=== PATIENT | female | born 1995 | race Caucasian/White ===

== ENCOUNTER 2024-06-10 11:58 | Outpatient (CLI) | payer OTHER, MEDICAID, SELFPAY ==
--- NOTE | 2024-06-10 12:15 | CRLHL7_ITS ---
For Patients: As a result of the Cures Act, medical imaging exams and procedure reports are released immediately into your electronic medical record. You may view this report before your referring provider. If you have questions, please contact your health care provider. INDICATION: First trimester scan, establish dates. COMPARISON: None. TECHNIQUE: Real-time weinstein-scale imaging of the pelvis was performed. FINDINGS: Sonographic imaging demonstrates a single living intrauterine gestation. The embryo demonstrates a regular cardiac rate measuring 169 beats per minute. The embryo`s crown-rump length measurement of 2.9 cm corresponds to a gestational age of 9 weeks 5 days with a sonographic due date of 01/08/2025. There is a normal-appearing yolk sac. There are no gross abnormalities noted within the embryo at this early state of development. The gestational sac has a normal appearance. There is no evidence of a perigestational hemorrhage. The amount of fluid within the sac appears appropriate for gestational age. The cervix is closed. The myometrium appears normal. Normal left ovary. Right ovary not visualized. There are no suspicious fluid collections noted in the cul-de-sac. IMPRESSION: Single living intrauterine with sonographic gestational age 9 weeks 5 days and sonographic due date 01/08/2025. Dictated by Naveed Martínez MD @ 06/10/2024 8:23:05 PM (Electronically Signed)
== END 2024-06-10 11:59 | disposition home or self-care (01) ==
PROVIDERS: Visit Provider Advanced Practice Midwife
DX: Z34.91 Encounter for supervision of normal pregnancy, unspecified, first trimester (principal); Z3A.09 9 weeks gestation of pregnancy
CPT/HCPCS: 76801

== ENCOUNTER 2024-06-10 13:09 | Outpatient (CLI) | payer OTHER, MEDICAID, SELFPAY | END 2024-06-10 13:10 | disposition home or self-care (01) | PROVIDERS: Visit Provider Advanced Practice Midwife | DX: Z34.91 Encounter for supervision of normal pregnancy, unspecified, first trimester (principal); Z3A.10 10 weeks gestation of pregnancy | CPT/HCPCS: 83021; 86592; 86703; 86704; 86706; 86762; 86787; 86803; 86850; 86900; 86901; 87086; 87340 ==

== ENCOUNTER 2024-08-23 08:11 | Outpatient (CLI) | payer MEDICAID, SELFPAY ==
--- NOTE | 2024-08-23 08:15 | CRLHL7_ITS ---
For Patients: As a result of the Century Cures Act, medical imaging exams and procedure reports are released immediately into your electronic medical record. You may view this report before your referring provider. If you have questions, please contact your health care provider. OBSTETRICAL ULTRASOUND ??? ANATOMY SURVEY INDICATION: Basic anatomy survey. LMP: 04/01/2024 NEHA by LMP: 01/06/2025 GESTATIONAL AGE: 20 weeks 4 days TECHNIQUE: Realtime weinstein-scale imaging of the fetus was performed transabdominal. PREVIOUS ULTRASOUND: 06/10/2024 FINDINGS: position: Vertex Cervix: Visualized Technique: Transabdominal Length of closed cervix: 3.7 cm Placenta position: Anterior Technique: Transabdominal Placenta tip to internal os: 8.6 cm Umbilical cord: 3-vessel cord Placental insertion: Central Amniotic fluid: 4.7 cm SDP (greater than/equal to 2 to less than 8 cm) ANATOMY SURVEY: Observed Structures Cerebellum: 2.0 cm, 20 weeks 5 days Cisterna magna: 5.4 mm Nuchal fold: 5.0 mm Lateral ventricle: 5.3 mm CSP: Yes Midline falx: Yes Choroid plexus: Yes Spine: Yes Stomach: Yes Abdominal cord insert: Yes Urinary bladder: Yes Kidneys: Yes Diaphragm: Yes Nose/lips: Yes Orbital view: Yes Profile: Yes Upper extremities: Yes Lower extremities: Yes Hands: Yes Feet: Yes 4-chamber heart: Yes LVOT: Yes RVOT: Yes 3VV: Yes 3VTV: Yes BIOMETRY BPD: 5.2 cm, 21 weeks 5 days, 86.9% HC: 18.8 cm, 21 weeks 1 day, 66.9% AC: 15.0 cm, 20 weeks 2 days, 32.5% FL: 3.2 cm, 20 weeks 0 days, 22.6% FL/AC: 21.41% HC/AC ratio: 1.26 heart rate: 145 bpm age by this ultrasound: 20 weeks 5 days NEHA by this ultrasound: 01/05/2025 Estimated weight: 343.3 grams (12 ounces) Percentile by NEHA: 29.4% IMPRESSION: 1) Concordance of sonographic and clinical dates. 2) Normal anatomic survey. 3) Two placental lakes are present measuring 2.3 x 1.7 x 1.6 cm and 3.2 x 1.2 x 1.8 cm. NAVEED BOSS M.D. Diagnostic Radiologist [email or web address] Transcribed: 10:[address]/Dictated by: Naveed Boss MD @ 08/23/2024 10:25:00 AM (Electronically Signed)
== END 2024-08-23 08:12 | disposition home or self-care (01) ==
PROVIDERS: Visit Provider Advanced Practice Midwife
DX: Z34.92 Encounter for supervision of normal pregnancy, unspecified, second trimester (principal); Z3A.20 20 weeks gestation of pregnancy
CPT/HCPCS: 76805

== ENCOUNTER 2024-10-20 11:06 | Outpatient (CLI) | payer MEDICAID, SELFPAY | END 2024-10-20 11:07 | disposition home or self-care (01) | LOC: NFLDREF 11:08 | PROVIDERS: Visit Provider Advanced Practice Midwife | DX: Z34.03 Encounter for supervision of normal first pregnancy, third trimester (principal); Z67.41 Type O blood, Rh negative | CPT/HCPCS: 86592; 86850; J2791 ==

== ENCOUNTER 2024-11-23 10:49 | Outpatient (CLI) | payer MEDICAID, SELFPAY | END 2024-11-23 10:50 | disposition home or self-care (01) | LOC: NFLDREF 11-30 01:45 | PROVIDERS: Visit Provider Midwife | DX: O99.013 Anemia complicating pregnancy, third trimester (principal); D64.9 Anemia, unspecified; Z3A.33 33 weeks gestation of pregnancy | CPT/HCPCS: 82728 ==

== ENCOUNTER 2024-12-07 10:59 | Outpatient (CLI) | payer MEDICAID, SELFPAY | END 2024-12-07 11:00 | disposition home or self-care (01) | LOC: NFLDREF 12-14 15:45 | PROVIDERS: Visit Provider Advanced Practice Midwife | DX: Z34.03 Encounter for supervision of normal first pregnancy, third trimester (principal) | CPT/HCPCS: 87081; 87653 ==

== ENCOUNTER 2025-01-13 10:25 | Outpatient (CLI) | payer MEDICAID, SELFPAY ==
--- NOTE | 2025-01-13 10:45 | CRLHL7_ITS ---
For Patients: As a result of the Cures Act, medical imaging exams and procedure reports are released immediately into your electronic medical record. You may view this report before your referring provider. If you have questions, please contact your health care provider. OB ULTRASOUND BIOPHYSICAL PROFILE LMP: 04/01/2024. NEHA by LMP: 01/06/2025. GA: 41 w, 1 d. Single. Comparison: 08/23/2024. INDICATION: Post term. TECHNIQUE: Real time weinstein scale imaging of the fetus was performed. Transabdominal. CERVIX: Not visualized. POSITIONING: Vertex. AMNIOTIC FLUID: 7.0 cm. SDP (N: greater than 2 x 1 cm) BIOPHYSICAL PROFILE: Total score: 2. Gross body movements: 2. tone: 2. Respiratory activity: 2. Amniotic fluid: 2. (SDP N: greater than 2 x 1 cm) Total 02/24. PLACENTA: Technique: Transabdominal. PLACENTA POSITION: Anterior. DOPPLER: heart rate: 139 bpm. IMPRESSION: Normal biophysical profile 02/24. Naveed Martínez M.D. Diagnostic Radiologist [email or web address] CARON/sneha JR/Dictated by: Naveed Martínez MD @ 01/13/2025 11:34:00 AM (Electronically Signed)
--- OUTSIDE RECORDS SUMMARY | 2025-01-13 11:17 | XMS_ITS | Clinical Summary ---
Author Organization [facility] Address [address], [place] [address] Care Team Providers Care Manager Physical Name Role Phone Magdalena Tavares PA-C Primary Care Provider [phone] Source Comments You are receiving this document as you are listed as the primary care provider,follow-up provider, or the patient has been referred to you for consultation.This is in compliance with the Medicare and[facility] EHR Incentive Program,which states Providers who transition their patient to another setting of careor provider of care or refers their patient to another provider of care shouldprovide summary care record for each transition of care or referral. ScaleMP Allergies Active Allergy Reactions Criticality Noted Date Comments Penicillins Rash Medium 04/14/2019 Medications No known medications Active Problems No known active problems Immunizations Immunization Administration Dates Next Due Tdap 11/12/2018 Family History Medical History Relation Name Comments No Known Problems Father No Known Problems Mother Cancer, Skin Paternal Grandfather Dementia Paternal Grandmother Cancer, Breast Negative Family History Cancer, Colon Negative Family History Coronary Artery Disease Negative Family History Relation Name Status Comments Father Alive Mother Alive Brother 1 Alive Brother 2 Alive Maternal Grandfather Alive Maternal Grandmother (Age 87) Co mplications due to COVID and kidney-related issues Paternal Grandfather Alive Paternal Grandmother Sister 1 Alive Sister 2 Alive Social History Tobacco Use Types Packs/Day Years Used Date Smoking Tobacco: Never Smokeless Tobacco: Never Alcohol Use Standard Drinks/Week Comments Not Currently 0 (1 standard drink = 0.6 oz pur e alcohol) AUDIT-C Answer Date Recorded Q1: How often do you have a drink containing alc ohol? Never 07/30/2020 Average Number of Drinks Not on file 021 Frequency of Binge Drinking Not on file 07/20 PHQ-2 Answer Date Recorded PHQ-2 Score 0 09/17/2021 Comments No Sex and Gender Information Value Date Recorded Sex Assigned at Not on file Legal Sex Female 3:28 PM CDT Gender Identity Not on file Sexual Orientation Not on file Occupation Industry Job Start Date Job End Date Teacher Not on file Not on file Not on file Last Filed Vital Signs Vital Sign Reading Time Taken Comments Blood Pressure 118/69 10/10/2021 2:42 PM CDT Pulse 80 10/10/2021 2:42 PM CDT Temperature 36.6 C (97.9 F) 04/14/2019 3:53 PM CDT Respiratory Rate - - Oxygen Saturation - - Inhaled Oxygen Concentration - - Weight 65.2 kg (143 lb 11.2 oz) 10/10/2021 2:42 PM CDT Height 168.9 cm (5' 6.5) 09/17/2021 3:37 PM CLOTH PRINTER Body Mass Index 22.85 09/17/2021 3:37 PM CLOTH PRINTER Plan of Treatment Health Maintenance Due Date Last Done Comments Hep C Screening (Preventive Services) 1997 HIV Screening (Preventive Services) 2013 HepB Vaccine (1) 01/21/2016 Adult Preventive Visit 09/18/2023 2, 07/30/2020 COVID-19 Vaccine ( - 2023-2 5 season) 2024 Cervical Cancer Screening 09/17/20242021, 06/23/2018 (Completed) Influenza Vaccine (Season Ended) 2025 DTaP/Tdap/Td Vaccine (2 - Tdap) 11/12/2028 11/12/2018 Zoster/Shingles Vaccine (1 o f 2) 2047 HPV Vaccine Aged Out No longer eligi ble based on patient's age to complete this topic HepA Vaccine Aged Out No longer eligi ble based on patient's age to complete this topic Hib Vaccine Aged Out No longer eligi ble based on patient's age to complete this topic IPV (Polio) Vaccine Aged Out No longe r eligible based on patient's age to complete this topic MCV4 Vaccine Aged Out No longer eligi ble based on patient's age to complete this topic Meningococcal B Vaccine Aged Out No l onger eligible based on patient's age to complete this topic Pneumococcal Vaccine Aged Out No long er eligible based on patient's age to complete this topic Procedures Procedure Name Priority Date/Time Associated Diagnosis Comments CYTOLOGY (PAP) Routine 09/17/2021 4:18 PM CLOTH PRINTER Screening for malignant neoplasm of cervix from Last 3 Months or Most Recently Relevant to Health Maintenance Results * PAP Test (09/17/2021 4:18 PM CLOTH PRINTER) Case Report Pap Case: [id number] Authorizing Provider: Magdalena Tavares PA-C Collected: 09/17/2021 1618 Ordering Location: [facility] Received: 09/17/2021 1634 First Screen: Isabelle Shahid CT (ASCP) Specimen: Pap Test, Routine, Cervix/Endocervix 09/25/2021 11:23 AM CLOTH PRINTER [facility] Pap Specimen Adequacy Satisfactory for evaluation, endocervical/cao sformation zone component present. 09/25/2021 11:23 AM CLOTH PRINTER [facility] Pap Interpretation (NILM) Negative for intraepithelial lesion or malignancy. 09/25/2021 11:23 AM CLOTH PRINTER [facility] at 1123 CLOTH PRINTER Pap Disclaimer The Pap test is a screening test designed to aid in the detection of cervical cancer and its precursor lesions. It is not a diagnostic procedure and should not be used as the sole means of detecting cervical cancer. Both false-positive and false-negative results may occur. 09/25/2021 11:23 AM CLOTH PRINTER [facility] Gross Description The specimen is received in SurePath fixative and properly labeled. 1 Pap-stained SurePath slide is prepared. 09/25/2021 11:23 AM CLOTH PRINTER [facility] Embedded Images 11:23 AM CLOTH PRINTER [facility] Other Specimen Type ENTIRE ENDOCERVIX / Unknown 09/17/2021 4:18 PM CLOTH PRINTER 09/17/2021 4:34 PM CLOTH PRINTER Comment:LMP: 08/31/21 Magdalena Tavares PA-C LAB PATHOLOGY Final Resul t [facility] [address] [place] [address], [facility] from Last 3 Months or Most Recently Relevant to Health Maintenance Insurance BCBS OUT OF STATE Care Teams Manager Physical Relationship Specialty Start Date End Date Magdalena Tavares PA-C [address] [place] [address] PCP - General Physician Online Community Manager 04/14/19
--- OUTSIDE RECORDS SUMMARY | 2025-01-13 11:17 | XMS_ITS | Clinical Summary ---
Author Organization [facility] Address [address] [place] [id number] Care Team Providers Care Physician Executive Name Role Phone No Ref-Primary, Physician Primary Care Provider Mynor Gomez MD Unavailable [phone] Allergies Active Allergy Reactions Criticality Noted Date Comments Penicillins Rash Medium 04/14/2019 Medications No known medications Family History Medical History Relation Comments Cardiomyopathy No family hx of Coronary Artery Disease Early Onset No family hx of Social History Tobacco Use Types Packs/Day Years Used Date Smoking Tobacco: Never Passive Smoke Exposure: Never Smokeless Tobacco: Never Tobacco Cessation:Counseling Given: No Alcohol Use Standard Drinks/Week Comments Not Currently 0 (1 standard drink = 0.6 oz pur e alcohol) PHQ-2 Answer Date Recorded PHQ-2 Score 0 06/18/2023 Adolescent Education Answer Date Record ed Getting School Help Needed Not on file 04/16 Comments Unknown Sex and Gender Information Value Date Recorded Sex Assigned at Not on file Legal Sex Female 10:48 AM CDT Gender Identity Not on file Sexual Orientation Not on file 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 Not on file N ot on file Last Filed Vital Signs Vital Sign Reading Time Taken Comments Blood Pressure 108/76 06/18/2023 9:35 AM RECONSTRUCTIVE SURGEON Pulse 93 06/18/2023 9:35 AM RECONSTRUCTIVE SURGEON Temperature - - Respiratory Rate - - Oxygen Saturation 95% 06/18/2023 9:35 AM RECONSTRUCTIVE SURGEON Inhaled Oxygen Concentration - - Weight 66.2 kg (146 lb) 06/18/2023 9:35 AM RECONSTRUCTIVE SURGEON Height 167.6 cm (5' 6) 06/18/2023 9:35 AM RECONSTRUCTIVE SURGEON Body Mass Index 23.57 06/18/2023 9:35 AM RECONSTRUCTIVE SURGEON Plan of Treatment Health Maintenance Due Date Last Done Comments ADVANCE CARE PLANNING 1997 ANNUAL REVIEW OF HM ORDERS 1997 HEPATITIS B VACCINE (1 of 3 - 19+ 3-dose series) 01/21/2016 PAP 2018 YEARLY PREVENTIVE VISIT 09/17/2022 09/18/19, 07/30/2020 COVID-19 VACCINE (1 - 2023-2 5 season) 2024 PHQ-2 (once per calendar year) 2024 06/18/2023 INFLUENZA VACCINE (Season Ended) 2025 DTAP/TDAP/TD VACCINE (2 - Td or Tdap) 11/12/2028 11/12/2018 ZOSTER VACCINE (1 of 2) 2047 HEPATITIS C SCREENING Completed 06/10/2024 HIV SCREENING Completed 06/10/2024 HPV VACCINE Aged Out No longer eligi ble based on patient's age to complete this topic MENINGITIS VACCINE Aged Out No longer eligible based on patient's age to complete this topic PNEUMOCOCCAL VACCINE: PEDIATRICS (0 to 5 YEARS) AND AT-RISK PATIENTS (6 to 49 YEARS) Aged Out No longer eligible b ased on patient's age to complete this topic Insurance ([place]) [place] [id number] [facility] INDIVIDUAL FAMILY PLANS WITH [facility] INDIVIDUAL FAMILY [facility]ANS WITH [facility] Care Teams Physician Executive Relationship Specialty Start Date End Date No Ref-Primary, Physician PCP - General 04/16/23 Mynor Gomez MD [address] [place] [address] [id number] Cardiovascular Disease 05/18/23
--- OUTSIDE RECORDS SUMMARY | 2025-01-14 00:29 | XMS_ITS | Clinical Summary ---
Author Organization [facility] Address [address], [place] [address] Care Team Providers Care Gripper Machine Operator Name Role Phone Magdalena Tavares PA-C Primary Care Provider [phone] Source Comments You are receiving this document as you are listed as the primary care provider,follow-up provider, or the patient has been referred to you for consultation.This is in compliance with the Medicare and[facility] EHR Incentive Program,which states Providers who transition their patient to another setting of careor provider of care or refers their patient to another provider of care shouldprovide summary care record for each transition of care or referral. [employer] Allergies Active Allergy Reactions Criticality Noted Date [...] 168.9 cm (5' 6.5) 09/17/2021 3:37 PM CHRONIC CARE NURSE Body Mass Index 22.85 09/17/2021 3:37 PM CHRONIC CARE NURSE Plan of Treatment Health Maintenance Due Date [...] Comments CYTOLOGY (PAP) Routine 09/17/2021 4:18 PM CHRONIC CARE NURSE Screening for malignant neoplasm of cervix from Last 3 Months or Most Recently Relevant to Health Maintenance Results * PAP Test (09/17/2021 4:18 PM CHRONIC CARE NURSE) Case Report Pap Case: [id number] Authorizing Provider: Magdalena Tavares PA-C Collected: 09/17/2021 1618 Ordering Location: [facility] Received: 09/17/2021 1634 First Screen: Isabelle Shahid CT (ASCP) Specimen: Pap Test, Routine, Cervix/Endocervix 09/25/2021 11:23 AM CHRONIC CARE NURSE [facility] Pap Specimen Adequacy Satisfactory for evaluation, endocervical/cao sformation zone component present. 09/25/2021 11:23 AM CHRONIC CARE NURSE [facility] Pap Interpretation (NILM) Negative for intraepithelial lesion or malignancy. 09/25/2021 11:23 AM CHRONIC CARE NURSE [facility] at 1123 CHRONIC CARE NURSE Pap Disclaimer The Pap test is a screening test designed to aid in the detection of cervical cancer and its precursor lesions. It is not a diagnostic procedure and should not be used as the sole means of detecting cervical cancer. Both false-positive and false-negative results may occur. 09/25/2021 11:23 AM CHRONIC CARE NURSE [facility] Gross Description The specimen is received in SurePath fixative and properly labeled. 1 Pap-stained SurePath slide is prepared. 09/25/2021 11:23 AM CHRONIC CARE NURSE [facility] Embedded Images 11:23 AM CHRONIC CARE NURSE [facility] Other Specimen Type ENTIRE ENDOCERVIX / Unknown 09/17/2021 4:18 PM CHRONIC CARE NURSE 09/17/2021 4:34 PM CHRONIC CARE NURSE Comment:LMP: 08/31/21 Magdalena Tavares PA-C LAB PATHOLOGY Final Resul t [facility] [address] [place] [address], [facility] from Last 3 Months or Most Recently Relevant to Health Maintenance Insurance BCBS OUT OF STATE Care Teams Gripper Machine Operator Relationship Specialty Start Date End Date Magdalena Tavares PA-C [address] [place] [address] PCP - General Physician Jewel Hole Rough Opener 04/14/19
--- OUTSIDE RECORDS SUMMARY | 2025-01-14 00:29 | XMS_ITS | Clinical Summary ---
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 Not on file N ot on file Last Filed Vital Signs Vital Sign Reading Time Taken Comments Blood Pressure 108/76 06/18/2023 9:35 AM PRIMER INSERTING MACHINE ADJUSTER Pulse 93 06/18/2023 9:35 AM PRIMER INSERTING MACHINE ADJUSTER Temperature - - Respiratory Rate - - Oxygen Saturation 95% 06/18/2023 9:35 AM PRIMER INSERTING MACHINE ADJUSTER Inhaled Oxygen Concentration - - Weight 66.2 kg (146 lb) 06/18/2023 9:35 AM PRIMER INSERTING MACHINE ADJUSTER Height 167.6 cm (5' 6) 06/18/2023 9:35 AM PRIMER INSERTING MACHINE ADJUSTER Body Mass Index 23.57 06/18/2023 9:35 AM PRIMER INSERTING MACHINE ADJUSTER Plan of Treatment Health Maintenance Due Date [...] patient's age to complete this topic Insurance ([place]) [place] [id number] [facility] INDIVIDUAL FAMILY PLANS WITH [facility] INDIVIDUAL FAMILY PLANS WITH [facility] Care Teams Manager Student Services Relationship Specialty Start Date End Date No Ref-Primary, Physician PCP - General 04/16/23 Mynor Gomez MD [address] [place] [address] [phone] Cardiovascular Disease 05/18/23
== END 2025-01-13 10:26 | disposition home or self-care (01) ==
LOC: US 10:26
PROVIDERS: Visit Provider Advanced Practice Midwife
DX: O48.0 Post-term pregnancy (principal); Z3A.41 41 weeks gestation of pregnancy
CPT/HCPCS: 76819

== ENCOUNTER 2025-01-13 14:14 | Outpatient (CLI) | payer MEDICAID, SELFPAY | END 2025-01-13 14:15 | disposition home or self-care (01) | LOC: NFLDREF 01-17 12:52 | PROVIDERS: Visit Provider Advanced Practice Midwife | DX: O48.0 Post-term pregnancy (principal); Z3A.41 41 weeks gestation of pregnancy | CPT/HCPCS: 76819; 87081; 87653 ==

== ENCOUNTER 2025-01-19 16:43 | Inpatient (IN) | payer MEDICAID, SELFPAY ==
[2025-01-19 16:55] VITALS: PULSE 96; O2SAT 98
[2025-01-19 16:56] VITALS: BP 111/75; PULSE 104
--- NOTE | 2025-01-19 17:25 | W.PM.LDBA ---
Subjective History of Present Illness Date Seen: 01/19/25 Narrative: Patient is being admitted to Labor and Delivery for IOL for post dates. She is a 29 year old at weeks gestation. Her full history and physical was dictated by Piper Boggs CNM 12/21 and 12/28/2024. Please see this for details. She is supported in her labor by her Nick. She has been sarika for most of the day, and while stronger than previous, she does not feel pain as of yet. No LOF or vaginal bleeding. Specific Issues/Plans : Nick H&P 12/21/24 by Angelica Boggs CNM. Heart and Lung sounds completed 12/28 Pt is a teacher, [employer] # PCN allergy Needs GBS sensitivity if positive Discussed allergy testing, she declines at this time but may considering testing after GBS is resulted Hives after surgery age 7 #Rh negative is Rh + by [facility] testing recommend Rhogam at 28 weeks-given #Anemia in 10.9 at 28w-started on PO iron 10.6 at 34w-to make sure she is taking 65 mg elemental iron with Vit C, recheck in 2 weeks-order placed COVID: Flu: TDAP: 11/07/24 32wk Mental Health: Pap due PP (09/17/21, NIL) Patient is going to talk to her mom to get her childhood immunization records, grew up in [place]. OB - Problem Based A/P Additional Plan (1) Post-dates : Status: Acute (2) Anemia affecting : Status: Acute (3) Supervision of normal first : Status: Acute Plan ASSESSMENT:?? 29 at 41 6/7 weeks gestation?? complicated by:??anemia, post term Labor type: Induced, Early labor?? Category 1 FHR pattern.??? Labor complicated by: none GBS negative ?? PLAN:?? 1. Routine intrapartum cares as ordered. Since we are monitoring baby, she is already sarika, but is not changing her cervix, options for ripening reviewed. I am hesitant to do anything that cannot be removed if we overstimulate the uterus. Cervidil or mechanical dilation would be the best options. Janice and Nick prefer to wait a few hours and see if her body picks up strength or frequency first. If not, they are choosing cervidil. I feel this is reasonable at this time. Side lying releases and upright positioning recommended. 2. Monitoring per policy, continuous 3. Planning unmedicated . Desires water . Consent signed. Hep C negative. Candidate for analgesia of choice.??? 4. Patient encouraged to reposition and ambulate to promote physiologic labor and .?? 5. Anticipate ? OB Result Labs Blood Type: 0 (-) negative Rubella: immune RPR/VDLR: nonreactive GBS Status: negative HBsAG: negative OB Exam Physical Exam Vital signs: Pulse BP Pulse Ox 104 H 111/75 98 01/19/25 16:56 01/19/25 16:56 01/19/25 16:55 Narrative: Vitals Reviewed Constitutional:? Alert and oriented x3 HEENT:? Normocephalic, atraumatic Neck:? Supple Lungs:? Clear to auscultation bilaterally Heart:? Regular rate and rhythm, no murmur, rub or gallop Abdomen:? Soft, nontender, and gravid. Vertex by Siddharth's, confirmed with cervical exam. Extremities:? No edema or erythema Cervix: 1-2 cm/20%/-4 station/Vertex verified by bedside US. And baby is LOP. EFW 8.5# NST: 125 bpm/moderate variability/accelerations present/decelerations absent/contractions q 3-5 min, palpating mild
[2025-01-19 20:45] VITALS: TEMP 36.6
[2025-01-19 21:47] VITALS: BP 112/79; PULSE 93
[2025-01-19 22:45] VITALS: TEMP 36.6
[2025-01-20] VITALS (17 sets, daily range): BP systolic 101–184; BP diastolic 54–133; PULSE 75–180; RESP 16; TEMP 36.4–36.8; O2SAT 96–97
[2025-01-20] MEDS: DINOPROSTONE 10 MG VAGINAL INSERT VAGINAL (00:35)
--- NOTE | 2025-01-20 09:56 | PM.OBPNL ---
Subjective Date Seen: 01/20/25 Narrative: Janice is a 30 yo at 42 0/7 weeks gestation that presented for Post-date IOL yesterday evening. At time of arrival, she was sarika regularly but minimally painful. Her IOL was started with vaginal cervadil. This morning around 730, she noted it had fallen out. She strongly desires to try to let her body go into labor naturally. She denies any LOF but has had some bloody show. No bright red bleeding.She is supported in labor by her , Nick. Specific Issues/Plans [id number]: EvanH&P 12/21/24 by Angelica Boggs CNM. Heart and Lung sounds completed 12/28 Pt is a teacher, [employer] # PCN allergy Needs GBS sensitivity if positive Discussed allergy testing, she declines at this time but may considering testing after GBS is resulted Hives after surgery age 7 #Rh negative is Rh + by [place] testing recommend Rhogam at 28 weeks-given #Anemia in 10.9 at 28w-started on PO iron 10.6 at 34w-to make sure she is taking 65 mg elemental iron with Vit C, recheck in 2 weeks-order placed Objective Exam: Objective: Constitutional: Alert and oriented x3, mild distress, coping well Vital signs stable, see nurse documentation Abdomen: gravid, contractions palpate moderate with contractions and soft between Cervix: 2 cm/70%/-2 station/vertex NST: 130 bpm/moderate variability/15x15 accelerations/no decelerations/contractions Vital Signs: Last Vital Signs Temp 98.2 F 01/20/25 07:23 Pulse 95 01/20/25 07:23 Resp 16 01/20/25 07:23 BP 104/70 01/20/25 07:23 Pulse Ox 96 01/20/25 08:16 Plan Plan: ASSESSMENT:?? 29 at 42 0/7 weeks gestation?? complicated by:??anemia, post term Labor type: Induced, Early labor?? Category 1 FHR pattern.??? Labor complicated by: none GBS negative ?? PLAN:?? 1. Routine intrapartum cares as ordered. Discussed options including replacing Cervidil, expectant management, AROM, vs Pitocin. Since the cervidil came out she has had some more regular contractions and desires to give it some time. Will discuss options again this afternoon. Encouraged her to do labor warm up and be moving to help labor progress. 2. Monitoring per policy, continuous due to post-dates. 3. Planning unmedicated . Desires water . Consent signed. Hep C negative. Candidate for analgesia of choice.??? 4. Patient encouraged to reposition and ambulate to promote physiologic labor and .?? 5. Anticipate
--- NOTE | 2025-01-20 15:30 | P.OBPN_ITS ---
Subjective Time Seen by Provider: 15:15 Date Seen: 01/20/25 Narrative: Janice is a 30 yo at 42 0/7 weeks gestation that presented for Post-date IOL yesterday evening. She has received 1 dose of Cervidil this morning that fallout around 730, after only 7 hours post placement. She has then progressed on her own. She is motivated to change positions and try to continue labor on it's own. She denies any LOF but has had some bloody show. No bright red bleeding. She is supported in labor by her , Nick. Her cross country/track and field coach is planning on coming when she becomes more active. Objective Exam: Objective: Constitutional: Alert and oriented x3, mild/moderate distress, coping well Vital signs stable, see nurse documentation Abdomen: gravid, contractions palpate moderate/strong with contractions and soft between Cervix: 4 cm/80%/-2 station/vertex NST: 130 bpm/moderate variability/15x15 accelerations/no decelerations/contractions every 2-3 minutes Vital Signs: Last Vital Signs Temp 97.6 F 01/20/25 19:04 Pulse 113 H 01/20/25 19:04 Resp 16 01/20/25 19:04 BP 112/72 01/20/25 19:04 Pulse Ox 97 01/20/25 12:25 Plan Plan: ASSESSMENT:?? 29 at 42 0/7 weeks gestation?? complicated by:??anemia, post term, rh negative Labor type: Induced, Early labor?? Category 1 FHR pattern.??? Labor complicated by: none GBS negative ?? PLAN:?? 1. Routine intrapartum cares as ordered. Reviewed options including replacing Cervidil, expectant management, AROM, vs Pitocin. She has made change since then without additional induction agents, will continue with expectant management at this time. Aware that we have options if labor slows down or with any changes. 2. Monitoring per policy, continuous due to post-dates. 3. Planning unmedicated . Desires water . Consent signed. Hep C negative. Candidate for analgesia of choice.??? 4. Patient encouraged to reposition and ambulate to promote physiologic labor and .?? 5. Anticipate
[2025-01-21] VITALS (70 sets, daily range): BP systolic 78–113; BP diastolic 51–74; PULSE 95–160; RESP 16–20; TEMP 35.8–37.1; O2SAT 96–100
--- NOTE | 2025-01-21 02:45 | P.OBPN_ITS ---
Subjective Time Seen by Provider: 02:45 Date Seen: 01/21/25 Narrative: Janice is a 30 yo at 42 1/7 weeks gestation that presented for Post-date IOL 01/19. She has received 1 dose of Cervidil then progressed on her own. She has been motivated to change positions and try to continue labor on it's own. She denies any LOF but has had some bloody show. No bright red bleeding. She is supported in labor by her , Nick. Her spout worker is present and supportive. Patient has been active with position changes. She entered the tub about midnight and had intermittent pushing urge with contractions starting at 0040. At 0233, I recommended SVE after minimal change in demeanor and her reported feeling of pressure. Discussed I would recommend AROM. Vital Signs: Last Vital Signs Temp 97.6 F 01/20/25 19:04 Pulse 113 H 01/20/25 19:04 Resp 16 01/20/25 19:04 BP 112/72 01/20/25 19:04 Pulse Ox 97 01/20/25 12:25 Objective Exam: Objective: Constitutional: Alert and oriented x3, moderate/severe distress, coping well Vital signs stable, see nurse documentation Abdomen: gravid, contractions palpate strong with contractions and soft between Cervix: 8 cm/80%/0 station/vertex; AROM of clear fluid NST: 125 bpm/moderate variability/15x15 accelerations/no decelerations/contractions every 2-6 minutes Vital Signs: Last Vital Signs Temp 96.5 F L 01/21/25 05:35 Pulse 160 H 01/21/25 07:26 Resp 20 01/21/25 00:35 BP 91/54 L 01/21/25 07:26 Pulse Ox 100 01/21/25 05:30 Plan Plan: ASSESSMENT:?? 27 at 42 1/7 weeks gestation?? complicated by:??anemia, post term, rh negative Labor type: Induced, Early labor?? Category 1 FHR pattern.??? Labor complicated by: none GBS negative ?? PLAN:?? 1. Routine intrapartum cares as ordered. Discussed and encouraged SVE and AROM, patient was initially unsure but then agreed after discussion and given time to discuss with partner. [employer] agreed it would help with labor progression. 2. Monitoring per policy, continuous due to post-dates. 3. Planning unmedicated . Desires water . Consent signed. Hep C negative. Candidate for analgesia of choice, if desired.??? 4. Patient encouraged to reposition and ambulate to promote physiologic labor and .?? 5. Anticipate
[2025-01-21] MEDS: LIDOCAINE 1 % PF 30 ML INJECTION (07:28)
[2025-01-21] MEDS: lidocaine HCL 2 % JELLY (TOP) STERILE 6 ML TOPICAL (07:29)
[2025-01-21] MEDS: LACTATED RINGERS 1000 ML 1,000 ML 1200 ML IV ×2 (07:35→10:02)
[2025-01-21] MEDS: miSOPROStoL 800 MCG/4 TABLET PR (07:35)
--- NOTE | 2025-01-21 07:43 | W.PM.OBVAGDE ---
OB Procedure Vag Delivery Mother Details Mother Details: The patient is a 30 year-old, 1, now Para 1, admitted on 01/19/25 at 42.1 gestation. : 1 Para: 1 Weeks Gestation: 42.1 Admission Date: 01/19/25 Additional Details Amniotic Membrane Status: AROM Amniotic Membrane Rupture Date: 01/21/25 Amniotic Membrane Rupture Time: 02:33 Amniotic Membrane Fluid Description: Clear Analgesia/Anesthesia Type: None Waterbirth: No Pitcoin: Yes ([facility] only) Intrapartal Events: Labor Induction Induction Method: Cervidil Labor Onset: 18:15 Complete: 04:45 Pushin:45 Heart: heart tones during second stage were category II and difficult to monitor due to maternal positioning. Continual monitoring by RN and CNM during pushing with continued adjustment of US monitor. Reassuring FHR status throughout. Delivery Details Delivery Date: 01/21/25 Delivery Time: 06:37 Route of delivery: Gender: Male Viability: Alive; Heart Rate Present Position at Delivery: OA Delivery Details: Patient was admitted for induction of labor for post dates. She received 1 dose of cervidil before progressing spontaneously on her own. Patient attempted to labor in the tub but had a hard time determining contraction from pressure and pushing. She begin pushing occasionally with urge at peak of contractions at 0040. An SVE was recommended and encouraged AROM at 8 cm. She was AROM'd for clear fluid at 0233. She got out of the tub and was more effectively able to push in squatting position. Patient was assumed complete with pushing effectively at 0445. of a viable male at 0656, kneeling on the mat next to the bed. Vertex delivered OA. No nuchal cord or shoulder. Body delivered easily and without incident. Infant passed to mothers abdomen with a vigorous cry. Cord was clamped and cut at > 5 minutes. APGARS were 8 at one minute and 9 at five minutes respectively. Mouth was bulb suctioned. Intact placenta with a 3 vessel cord delivered spontaneously at 0656. Fundus firm. EBL 500 cc on the floor mat. JJ Perez assumed care after delivery of placenta for repair. QBL 178 cc. Total blood loss with EBL 678 cc. 2nd degree perineal laceration repair with 3-0 vicryl in usual manner. Right labial laceration repaired, smaller left labial not bleeding and not repaired. Vaginal hematoma on left vaginal wall stable not increasing in size, vaginal packing placed after repair, smaller hematoma to right side palpated. Mother and baby stable; mother plans to breastfeed. weight pending. 1 Minute Interval Total Score: 8 5 Minute Interval Total Score: 9 Additional Details Shoulder Dystocia: No Placenta Delivery Time: 06:56 Placental Delivery Description: Spontaneous Delivery repair: Vicryl Procedure Done: Global Laceration: Perineal - 2nd Degree Blood Loss Measurement Type: QBL (+ EBL on the floor mat) Bakri Used: No Sponge/Need Count Correct: Yes Cord Vessel Description: 3 Vessels Event Summary Status: Mother and were stable after delivery. Disposition: floor
[2025-01-21] MEDS: IBUPROFEN 600 MG TABLET PO ×3 (08:16→20:52)
[2025-01-21 10:11] LABS: Hematocrit 32.9 % (33.0-51.0); Hemoglobin* 11.6 gm/dL (12.0-16.0); Immature Granulocytes Pct Auto 0.2 %; Mean Corpuscular HGB Conc 35 gm/dL (32-36); Mean Corpuscular Hemoglobin 31 pg (26-34); Mean Corpuscular Volume 88 fL (80-100); RDW Coefficient of Variation % 14.3 % (11.5-15.5); Red Blood Count 3.74 m/uL (4.00-5.20); White Blood Count* 24.02 K/uL (4.50-11.00)
[2025-01-21 10:17] LABS: Immature Granulocytes Abs Auto 0.00 K/uL (0.00-0.30); Lymphocytes Absolute Auto 0.80 K/uL (0.90-2.90)
[2025-01-21 10:18] LABS: Slide Review Reflex No
[2025-01-21] MEDS: ACETAMINOPHEN 500 MG TABLET 1000 MG PO ×2 (12:43→19:23)
--- NOTE | 2025-01-21 14:05 | PM.EN ---
Chart Event Note Time Seen by Provider: 14:00 Date Seen: 01/21/25 Chart Event Note: Called to patient's bedside for complaints of increasing pain. Just prior to my arrival she got up to the bathroom and the vaginal packing came out. She then passed a large clot and voided. On my arrival to the room she reports minimal pain, a visual exam of the hematoma area appears to be be slightly smaller than immediately after delivery. An internal palpation of the area was not done by patient request. Fundus is firm at umbilicus. Denies need for additional pain medication at this time. An ice pack and fresh pad was placed and she plans to try nap as she reports feeling exhausted.
[2025-01-22] VITALS (13 sets, daily range): BP systolic 92–106; BP diastolic 58–70; PULSE 90–104; RESP 16–20; TEMP 36.2–36.9; O2SAT 95–97
[2025-01-22] MEDS: ACETAMINOPHEN 500 MG TABLET 1000 MG PO ×4 (01:28→20:18)
[2025-01-22] MEDS: IBUPROFEN 600 MG TABLET PO ×4 (03:47→23:40)
[2025-01-22 06:25] LABS: Hemoglobin* 7.0 gm/dL (12.0-16.0)
--- NOTE | 2025-01-22 07:21 | P.OBPN_ITS ---
OB - PN:Subj Subjective Date Seen: 01/22/25 Narrative: Janice is a 30 y.o. who was admitted to L & D for induction of labor for postdates.? She had a NVD with vaginal hematoma.?This morning her Hgb is 7.0, down from 11.6. She is not feeling symptomatic at this time. Hematoma appears to be the same size from yesterday possibly slightly smaller. The patient feels well.? The pain is well controlled with current medications.? She has no new complaints.? She is breast feeding and reports things are going well.? the patient has done well.? Vitals have been stable.? She has remained afebrile.? Has a good appetite, is tolerating a general diet.? She is voiding without difficulty.? She is passing gas and has not had a bowel movement.? She is ambulating and denies any dizziness.? Has Small amount of rubra lochia.? OB - PN: Obj Exam Physical Exam: Vital signs: Temp Pulse Resp BP Pulse Ox O2 Del Method 98.1 F 99 16 94/63 96 Room Air 01/22/25 03:59 01/22/25 03:59 01/22/25 03:59 01/22/25 03:59 01/22/25 03:59 01/22/25 03:59 Narrative: GENERAL APPEARANCE:? normal affect, alert, no distress? MOOD:? appropriate? HEENT: normocephalic, neck supple, full ROM? CHEST:? Symmetrical chest wall movement.? Normal respiratory effort.? Clear to auscultation ? HEART:? regular rate and rhythm? ABDOMEN:? soft, non-tender. Uterine fundus is firm, 1 above Umbilicus and to the right. She reports needing to void.? Bowel sounds present.? PERINEUM:? mild edema of the perineum, left labial hematoma appears unchanged, skin is not taut there is a 2nd degree and right labial laceration that is healing well.? EXTREMITIES:? normal and trace edema? OB - PN: Obj Data Labs Labs: Laboratory Results - last 24 hr 01/21/25 01/22/25 07:38 06:02 WBC 24.02 H RBC 3.74 L Hgb 11.6 L 7.0 L* Hct 32.9 L MCV 88 MCH 31 MCHC 35 RDW Coeff of Dominik 14.3 Plt Count 218 Neut % (Auto) 91.0 H Lymph % (Auto) 3.4 L [place] % (Auto) 5.4 Eos % (Auto) 0.0 Baso % (Auto) 0.0 Neut # (Auto) 21.90 H Lymph # (Auto) 0.80 L [place] # (Auto) 1.30 H Eos # (Auto) 0.00 Baso # (Auto) 0.00 Abs Immat Gran (auto) 0.00 Imm/Tot Granulo (auto) 0.2 OB - PN: A/P Delivery Assessment and Plan (1) Anemia due to acute blood loss: Status: Acute (2) care and examination of lactating mother: Status: Acute (3) (normal spontaneous vaginal delivery): Status: Acute Plan day: 1 Plan: routine care Comments: G 1 P 1 status post NVD??? 1.? Continue route PP cares? 2.? .? May see if desired? 3.? Anticipate discharge home tomorrow? 4. ?Acute anemia.? Iron supplement ordered. One unit PRBC ordered 5. Vaginal hematoma stable
[2025-01-22] MEDS: DOCUSATE SODIUM 100 MG CAPSULE PO (08:15)
[2025-01-22] MEDS: FERROUS SULFATE 325 MG TABLET PO (08:15)
[2025-01-22] MEDS: LANOLIN CREAM 1 APPLIC TOPICAL (20:24)
[2025-01-23] MEDS: ACETAMINOPHEN 500 MG TABLET 1000 MG PO ×2 (02:22→09:53)
[2025-01-23 05:33] VITALS: BP 102/68; PULSE 83; RESP 16; TEMP 36.5; O2SAT 97
[2025-01-23] MEDS: IBUPROFEN 600 MG TABLET PO ×2 (05:37→11:44)
[2025-01-23 07:25] LABS: Hemoglobin* 8.5 gm/dL (12.0-16.0)
--- NOTE | 2025-01-23 07:26 | PM.OBDSVD1 ---
DS: Providers Provider Date Seen: 01/23/25 Date of admission: 01/19/25 16:43 Primary care physician: Not a Local Provider Admitting Clinician: Jackeline Concepcion CNM Attending Physician on discharge: Omayra Davidson CNM DS: Diagnosis Discharge Diagnosis (1) (normal spontaneous vaginal delivery): Status: Acute (2) Anemia due to acute blood loss: Status: Acute (3) care and examination of lactating mother: Status: Acute (4) Vaginal hematoma: Status: Acute Exam Narrative: Exam Narrative: GENERAL APPEARANCE:? normal affect, alert, no distress MOOD:? appropriate CHEST:? clear to auscultation HEART:? regular rate and rhythm ABDOMEN:? soft, non-tender the uterine fundus is At Umbilicus, Midline and is appropriate for the stage of recovery. PERINEUM:? mild edema of the perineum, there is a Perineal Laceration,?2nd degree and vaginal hematoma, that are healing well. EXTREMITIES:? normal and no edema Const: Vital Signs, click to edit/add: Vital Signs - 24 hr 01/22/25 08:06 01/22/25 08:51 01/22/25 09:25 Temperature 97.5 F L 97.5 F L 97.7 F Pulse Rate 104 H 101 H Pulse Rate [Pulse Oximeter] 102 H Respiratory Rate 16 17 16 Blood Pressure 99/61 92/58 L Blood Pressure [Le ft Arm] 96/62 Pulse Oximetry 96 97 96 Oxygen Delivery Me thod Room Air Room Air Room Air 01/22/25 09:55 01/22/25 10:25 01/22/25 10:55 Temperature 98.2 F 97.5 F L 98.5 F Pulse Rate 99 91 93 Pulse Rate [Pulse Oximeter] Respiratory Rate 20 20 20 Blood Pressure 100/63 101/66 98/64 Blood Pressure [Le ft Arm] Pulse Oximetry 97 96 97 Oxygen Delivery Me thod Room Air Room Air Room Air 01/22/25 11:25 01/22/25 12:42 01/22/25 12:57 Temperature 98.2 F 98.1 F 98.1 F Pulse Rate 100 102 H 100 Pulse Rate [Pulse Oximeter] Respiratory Rate 20 18 18 Blood Pressure 106/70 97/62 97/62 Blood Pressure [Le ft Arm] Pulse Oximetry 97 95 96 Oxygen Delivery Me thod Room Air Room Air Room Air 01/22/25 16:12 01/22/25 20:20 01/23/25 05:33 Temperature 97.7 F 97.4 F L 97.7 F Pulse Rate Pulse Rate [Pulse Oximeter] 96 101 H 83 Respiratory Rate 20 16 16 Blood Pressure Blood Pressure [Le ft Arm] 95/61 101/66 102/68 Pulse Oximetry 97 97 97 Oxygen Delivery Me thod Room Air Room Air Room Air OB - DS: Summary Hospital Course Hospital Course: Janice is a 30 y.o. G 1 P 1 who was admitted to L & D for induction of labor for post-dates. ?She had a NVD that was complicated by vaginal hematoma with suspected blood loss >1L, total QBL/EBL at time of delivery was 678 with unmeasured large blood clot after removal of vaginal packing. The patient feels well today after receiving 1 unit of RBC yesterday for hgb of 7.0. Her hemoglobin is now 8.5. ?The pain is well controlled with current medications. ?She has no new complaints. ?She is breast feeding and reports things are going well. the patient has done well.? Vitals have been stable.? She has remained afebrile.? Has a good appetite, is tolerating a general diet. ?She is voiding without difficulty.? She is passing gas and has not had a bowel movement.? She is ambulating and denies any dizziness.? Has small amount of rubra lochia. Problems: Anemia Discharge home with baby.? Follow up in 2 weeks and 6 weeks.? , may see if needed? Hgb 8.5. Iron supplement ordered orally every other day. Received 1 unit of RBC? For pain control of perineum, breast and pelvic pain, take 600 mg Ibuprofen every 6 hours as needed by mouth or 1000 mg acetaminophen (Tylenol) every 6 hours by mouth as needed. You can alternate these so you are taking something every 3 hours as needed. A heating pad can also be used for your abdomen or breasts. You may also take docusate sodium up to twice daily to soften your stools and help to prevent constipation. You may wean off of it when your stools return to normal.? Peripartum Data Infant delivery method: Vaginal Laceration description: Perineal - 2nd Degree (with vaginal hematoma) complications: none Infant Gender: Male Status at Discharge Functional status at discharge: independent ambulation Overall status at discharge: patient is progressing back to baseline Time Spent with Patient Time attestation: Total time spent providing and/or coordinating discharge services: Time spent: Less than 30 minutes Discharge Plan Discharge Disposition: Home, Self-Care Date of Admission: 01/19/25 16:43 Attending Provider on Discharge: Omayra Davidson Primary Care Provider: Provider,Not a Local Condition: Stable Anticipated Discharge Date/Time: 01/23/25 12:00 Discharge Medications: New acetaminophen 500 mg Tablet 1,000 mg PO Q6H PRNQty: 0 0RF ferrous sulfate 325 mg (65 mg iron) Tablet 325 mg PO Q48H Qty: 0 0RF docusate sodium 100 mg Capsule 100 mg PO DAILY Qty: 90 0RF ibuprofen 600 mg Tablet 600 mg PO Q6H PRNQty: 60 0RF Continued Fiber Gummies 2 gram tablet,chewable PO ferrous sulfate 27 mg iron tablet 27 mg PO QDAY ascorbic acid (vitamin C) 500 mg capsule PO One-A-Day 400 mcg- 25 mg tablet,chewable PO Discharge Orders: Discharge Order (Routine); Ordered 01/23/25 Ordered By: Omayra Davidson Patient Education: OB Over the Counter Medication Information, OB Vaginal/Breast Feeding Additional Instructions: Discharge instructions were reviewed with the patient including signs and symptoms of infection and home going medications Nothing vaginally for 6 weeks: no tampons or intercourse Off Work or School for 6 weeks 2-week visit: discuss infant feeding concerns, review control options and screen for anxiety/depression. 6-week visit for an annual exam. consultation services are available to all mothers and babies for the first year after delivery.? To make an appointment, please call [phone]. Activity Level: Activity as Tolerated and No strenuous activity Discharge Diet: Regular Follow Up Appointments: [facility] [Provider Group] Forms: reportbrain Info Instructions
[2025-01-23 07:34] VITALS: BP 102/66; PULSE 86; RESP 18; TEMP 36.4; O2SAT 97
[2025-01-23] MEDS: DOCUSATE SODIUM 100 MG CAPSULE PO (09:54)
== END 2025-01-23 13:58 | disposition home or self-care (01) | DRG 806 ==
PROVIDERS: Advanced Practice Midwife; Admitting Provider Midwife; Visit Provider Midwife
DX: O48.0 Post-term pregnancy (principal); D62 Acute posthemorrhagic anemia; Z37.0 Single live birth; O71.7 Obstetric hematoma of pelvis; O70.1 Second degree perineal laceration during delivery; O99.02 Anemia complicating childbirth; O26.893 Other specified pregnancy related conditions, third trimester; Z67.41 Type O blood, Rh negative; Z3A.41 41 weeks gestation of pregnancy
CPT/HCPCS: 36415; 36430; 59200; 85018; 85025; 85461; 86592; 86850; 86900; 86901; 86922; A9270; J2003; J2590; J2791; J7120; P9016

== ENCOUNTER 2025-03-08 11:43 | Outpatient (CLI) | payer MEDICAID, SELFPAY ==
[2025-03-10 01:33] LABS: HPV Source Cervical
[2025-03-14 09:33] LABS: Pap Test Digital Imaging Done
== END 2025-03-08 11:44 | disposition home or self-care (01) ==
PROVIDERS: Visit Provider Advanced Practice Midwife
DX: Z12.4 Encounter for screening for malignant neoplasm of cervix (principal); Z11.51 Encounter for screening for human papillomavirus (HPV)
CPT/HCPCS: 87624; 87625; 88141; 88142; 88175